=== PATIENT | male | born 1955 | race Caucasian/White ===

== ENCOUNTER 2020-02-22 13:31 | Outpatient (CLI) | payer BC, SELFPAY ==
[2020-02-22 14:08] LABS: Abs Immature Grans 0.07 10^3/uL (0.0-0.06); Absolute Basophil Count 0.01 10^3/uL (0.0-0.2); Absolute Eosinophil Count 0.06 10^3/uL (0.0-0.7); Absolute Lymphocyte Count 0.13 10^3/uL (1.2-3.4); Absolute Monocyte Count 0.01 10^3/uL (0.1-0.8); Absolute Neutrophil Count 2.55 10^3/uL (1.2-6.7); Basophils % 0.4; Eosinophils % 2.1; HCT 30.1 % (40.0-50.0); HGB 9.3 g/dL (13.5-17.5); Immature Grans % 2.5; Lymphocytes % 4.6; MCH 23.4 pg (27.0-33.0); MCHC 30.9 % (32.0-36.0); MCV 75.8 fL (80-95); MPV 9.6 fL (8.0-11.0); Monocytes % 0.4; Nucleated RBC 0 %; RBC 3.97 10^6/uL (4.36-5.78); RDW 18.9 % (11.8-14.1); RDW-SD 52.4 fL; WBC 2.83 10^3/uL (4.4-10.8)
[2020-02-22 14:24] LABS: Platelet Count 87 10^3/uL (130-400)
[2020-02-22 14:25] LABS: Diff Comment Diff Reviewed; Hypochromasia 1+; Poikilocytes 2+
[2020-02-22 14:27] LABS: ALT 28 U/L (16-63); AST 77 U/L (15-37); Albumin 2.4 g/dL (3.4-5.0); Alkaline Phosphatase 229 U/L (46-116); Anion Gap 6.9 mmol/L (3-11); BUN 48 mg/dL (7-18); Bilirubin, Total 0.3 mg/dL (0.2-1.0); CO2 26.1 mmol/L (21.0-32.0); CREATININE 1.87 mg/dL (0.70-1.30); Calcium 8.5 mg/dL (8.5-10.1); Chloride 97 mmol/L (98-107); Estimated GFR 36.65 (mL/min/1.73m2); FREE T4 1.01 ng/dL (0.76-1.46); Glucose 127 mg/dL (74-106); Magnesium 2.1 mg/dL (1.8-2.4); Potassium 4.8 mmol/L (3.5-5.1); Sodium 130 mmol/L (136-145); TSH 2.35 uIU/mL (0.36-3.74); Total Protein 5.6 g/dL (6.4-8.2)
== END 2020-02-22 13:51 ==
PROVIDERS: Visit Provider Internal Medicine Medical Oncology
DX: C34.92 Malignant neoplasm of unspecified part of left bronchus or lung (principal)
CPT/HCPCS: 36415; 80053; 86900; 86901; 83735; 84439; 84443; 85025

== ENCOUNTER 2020-03-07 03:05 | Outpatient (CLI) | payer BC, SELFPAY ==
[2020-03-07 09:38] LABS: Abs Immature Grans 0.12 10^3/uL (0.0-0.06); Absolute Basophil Count 0.01 10^3/uL (0.0-0.2); Absolute Eosinophil Count 0.01 10^3/uL (0.0-0.7); Absolute Lymphocyte Count 0.33 10^3/uL (1.2-3.4); Absolute Monocyte Count 0.22 10^3/uL (0.1-0.8); Absolute Neutrophil Count 1.93 10^3/uL (1.2-6.7); Basophils % 0.4; Eosinophils % 0.4; HCT 31.6 % (40.0-50.0); Immature Grans % 4.6; Lymphocytes % 12.6; MCH 24.1 pg (27.0-33.0); MCHC 31.6 % (32.0-36.0); MCV 76.1 fL (80-95); MPV 9.6 fL (8.0-11.0); Monocytes % 8.4; Neutrophils % 73.6; Nucleated RBC 0 %; RBC 4.15 10^6/uL (4.36-5.78); RDW 18.8 % (11.8-14.1); RDW-SD 51.6 fL; WBC 2.62 10^3/uL (4.4-10.8)
[2020-03-07 09:59] LABS: ALT 30 U/L (16-63); AST 41 U/L (15-37); Albumin 2.4 g/dL (3.4-5.0); Alkaline Phosphatase 257 U/L (46-116); Anion Gap 9.1 mmol/L (3-11); BUN 60 mg/dL (7-18); Bilirubin, Total 0.7 mg/dL (0.2-1.0); CO2 20.9 mmol/L (21.0-32.0); Calcium 8.6 mg/dL (8.5-10.1); Chloride 100 mmol/L (98-107); Estimated GFR 30.38 (mL/min/1.73m2); FREE T4 1.18 ng/dL (0.76-1.46); Glucose 93 mg/dL (74-106); Magnesium 1.8 mg/dL (1.8-2.4); Potassium 4.4 mmol/L (3.5-5.1); Sodium 130 mmol/L (136-145); TSH 4.18 uIU/mL (0.36-3.74)
[2020-03-07 10:01] LABS: Platelet Count 66 10^3/uL (130-400)
[2020-03-07 10:02] LABS: Anisocytosis 1+; Diff Comment RBC Morph Reviewed
[2020-03-07 10:03] LABS: Poikilocytes 1+; Polychromasia Present
== END 2020-03-07 03:25 ==
PROVIDERS: Visit Provider Internal Medicine Medical Oncology
DX: C34.92 Malignant neoplasm of unspecified part of left bronchus or lung (principal); C79.31 Secondary malignant neoplasm of brain
CPT/HCPCS: 36415; 80053; 86850; 86900; 86901; 83735; 84439; 84443; 85025